=== PATIENT | male | born 1955 | race Caucasian/White ===

== ENCOUNTER 2023-01-05 09:56 | Day surgery (SDC) | payer BC, SELFPAY ==
[2023-01-03 11:53] VITALS: BMI 35.2
[2023-01-05] VITALS (11 sets, daily range): BP systolic 102–159; BP diastolic 54–86; PULSE 61–78; RESP 14–16; TEMP 36.2–36.4; O2SAT 93–98; BMI 35.2
--- NOTE | 2023-01-05 06:00 | DI.RAD.S_ITS ---
PROCEDURE: XR KNEE LT 1TO2V INDICATIONS: TKA TECHNIQUE: 2 view(s) of the knee acquired. COMPARISON: None. FINDINGS: Bones: Patient is status post knee joint arthroplasty. Hardware components are in expected positions. Visualized bony structures are intact. Soft tissues: Overlying postoperative changes are noted. IMPRESSION: Expected postsurgical changes of left total knee arthroplasty. No gross hardware complication identified. Dictated by: Jose Hoover M.D. on 01/05/2023 at 14:59 Approved by: Jose Hoover M.D. on 01/05/2023 at 14:59
[2023-01-05] MEDS: LACTATED RINGERS 1,000 ML 42 ML IV (10:33)
[2023-01-05] MEDS: ACETAMINOPHEN 325 MG TABLET 975 MG PO (10:37)
[2023-01-05] MEDS: MELOXICAM 7.5 MG TABLET PO (10:39)
--- NOTE | 2023-01-05 11:17 | PM.PREOP ---
Pre-operative Note Interval Note History & Physical reviewed/Exam performed by Physician: Yes Changes to H&P: No
[2023-01-05] MEDS: CEFAZOLIN 2 GM/100 ML PREMIX 100 ML IV ×2 (12:00→19:51)
[2023-01-05] MEDS: TRANEXAMIC ACID 1,000 MG VIAL 1000 MG INJ ×2 (12:05→13:50)
--- NOTE | 2023-01-05 12:24 | SUR.OPER ---
Supine on padded OR bed. Pillow under head, arms secured on padded armboards <90 degree abduction. Safety belt across torso. Non-operative leg secured with tape over blanket over lower leg. Operative leg secured in DeMayo/Arvind/Nathe positioner. Foam padded brace at thigh of operative leg.
[2023-01-05] MEDS: ROPIVACAINE/EPI/CLONIDINE/KET 50 ML SYRINGE INJ (12:36)
--- NOTE | 2023-01-05 14:50 | PM.OP.1 ---
Operative Date/Time/Diagnoses Date of procedure: 01/05/23 Time of procedure: 11:45 Pre-op diagnosis: Left knee arthritis Post-op diagnosis: same Procedure & Clinicians Procedure: Left total knee arthroplasty Same procedure as scheduled: Yes Surgeon: Paul Hays Counting Machine Operator: Thomas Lunsford Anesthesia Type: Spinal, Peripheral nerve block and Local Operative Notes Prosthetic devices, grafts, tissues, transplants, or devices: Davis and Nephew legion size 7 cruciate retaining femur, 6 tibial base plate, 13 mm ultra congruent polyethylene Estimated Blood Loss (mL): 250 Tourniquet time (min): 88 Procedure in detail: This 67-year-old male presenting to clinic with debilitating left knee pain. 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 He has significant pain which was refractory to all conservative measures. He wished to proceed with surgery. The risks and benefits were explained to him at length and he elected to proceed. He was met in the preoperative holding area the day of surgery and all questions were answered. Risks and benefits were again discussed. The operative site was marked and informed consent was signed. He was brought back to the operating room and spinal anesthesia was administered. He was placed supine on the flat top table and all bony prominences were padded. His arms were draped free and he was prepped and draped in the usual sterile fashion. A time-out procedure was performed verifying the correct patient operative site and medical conditions. TXA and cefazolin were administered prior to the start of the procedure. SUSANNE Elliott assisted during the procedure and was necessary for room set up, soft tissue retraction, wound closure, and the procedure would not have been possible without his help. The procedure began by inflating the tourniquet. I then made an incision extending down towards the tibial tubercle and centered over the patella. The soft tissues overlying the joint capsule were dissected and a medial parapatellar arthrotomy was utilized to gain access to the joint. A extended medial release was performed given his preoperative varus deformity of 10?. Soft tissues were released off of the lateral tibia and the anterior femur as well. I everted the patella and performed a limited lateral release just off the lateral border of the patella to aid with tracking and dissected off soft tissues around the patella as well as several small osteophytes. I then performed a lateral facetectomy. Moving to the distal femur retractors were placed around the femur and an intramedullary tim was inserted extending up the femoral canal. A 5 degree distal femoral resection was made and the cruciates were removed from the femoral notch. The knee was then maximally externally rotated and hyperflexed. Retractors were placed on the tibia and the remainder of the PCL remnant was taken down. With the tibia subluxed forward a intramedullary tim was inserted down the tibia and used as a reference for tibial resection. I cut 4 mm off of the medial side which was the more worn side. With retractors in place to protect the soft tissues during the tibial cut a flat cut was made and removed. I then moved to the extension gap. Placing the tensioner with the knee in full extension I found that it was actually slightly tighter laterally, potentially as a result of the medial release I would performed initially. I was not going to perform a lateral release on a varus knee so I accepted this, presuming that it would balance out over the remainder of the case. I then moved to the posterior femur. Hyperflexing the knee and placing retractors around the femur I initially placed a measured resection block and drilled holes for a 3 degree external rotation cut for comparison purposes. I then used a soft tissue tensioner to tension the knee in flexion with the tibia at 90? relative to the face of the distal femur. I tensioned this to the same amount of force as had been used an extension and shifted it by 1 mm to have a 13 mm gap as this is what I had measured with a forced rating of 40 while the knee was in extension. This was drilled and those pins remained in place when the tensioner was removed. I found that this was in an identical position as the measured resection holes which had been placed earlier, indicating that 3? of external rotation provided a balanced flexion gap. A size 8 4 in 1 block was placed in those holes and a spacer block was placed underneath that so that the 4 in 1 block rested on the tibia. I then internally and externally rotated through the hip to ensure that there was no excessive lift-off. I found this to be symmetric. The size 8 block was pinned in place and an anterior cut was made. This was rather thin so I downsized to a size 7, checked it with an Ap wing, and pinned it in place. I then completed the 4 in 1 cuts with that size 7. The block was removed and posterior osteophytes as well as the medial and lateral meniscus were removed as well. Approximately 50 mL of a cocktail containing ropivacaine epinephrine clonidine and Toradol was administered into the MCL, posterior capsule, lateral medial periosteum, patellar tendon, and VMO. Trial components were placed and I trialed the knee with 9 mm 11 mm and 13 mm polyethylene inserts. I found that the 13 mm insert provided the most stability in flexion while still allowing full extension. I therefore planned to utilize this at the cementation phase. All of the soft tissues were irrigated and the tibia and femur were irrigated. Cement was inserted down the tibial canal and the tibial component was impacted into place. The femoral component was likewise impacted into place with cement. The cement was allowed to cure with the knee in full extension while placing axial force on the heel. While the cement was drying a dilute mixture of Betadine and peroxide was used to bathe all of the soft tissues in the knee. A low adductor canal block was performed by using a laterally angled needle to inject the final 10 mL of the ropivacaine epinephrine clonidine and Toradol solution into the adductor canal to block the infrapatellar branch of the saphenous nerve. Prior to injection I withdrew on the syringe to ensure that I had not entered into the vasculature in that region. Once the cement had dried I tested the knee and noted that it had full extension, good stability medial relative to lateral, very good passive knee flexion, and minimal lift-off with internal and external rotation of the hip at 90? of flexion. Being satisfied with this construct I removed the trial polyethylene, inspected the knee for residual cement and removed any that I found, and impacted into place the 13 mm ultra congruent polyethylene. The tourniquet was taken down and hemostasis was achieved. The wound was closed using a combination of Vicryl, Quill, Stratafix. Dermabond Aquacel and an Escobar wrap were applied. The patient was awoken from anesthesia transferred off of the operating table and brought to the PACU where he awoke without any discernible complications. He was noted to be able to flex and extend his hallux and ankle and to have a palpable DP pulse. Post-operative Plan for aftercare: Weightbearing as tolerated Aspirin DVT prophylaxis Plan for discharge home either tonight or tomorrow morning Follow up 2 weeks outpatient for wound check
[2023-01-05] MEDS: MORPHINE 2 MG/ML INJ IV (15:29)
[2023-01-05] MEDS: LACTATED RINGERS 1,000 ML 100 ML IV (15:30)
[2023-01-05] MEDS: ACETAMINOPHEN 325 MG TABLET 650 MG PO ×2 (15:31→20:50)
--- NOTE | 2023-01-05 15:34 | DI.RAD.S_ITS ---
PROCEDURE: XR CHEST 1V INDICATIONS: chest pain TECHNIQUE: One view of the chest was acquired. COMPARISON: None. FINDINGS: Surgical changes and devices: None. Lungs and pleura: Lungs are clear. No pleural effusions or pneumothorax. Mediastinum: Mediastinal contours appear normal. Heart size is normal. Bones and chest wall: No suspicious bony lesions. Overlying soft tissues appear unremarkable. IMPRESSION: Portable chest within normal limits for age. Dictated by: Bakari Bonilla M.D. on 01/05/2023 at 16:10 Approved by: Bakari Bonilla M.D. on 01/05/2023 at 16:10
[2023-01-05 16:22] LABS: Troponin I < 0.012 ng/mL (0.01-0.034)
[2023-01-05] MEDS: OXYCODONE IR 10 MG TABLET PO ×2 (16:34→19:49)
--- NOTE | 2023-01-05 16:39 | P.CONS_ITS ---
History of Present Illness Consult details Date Patient Seen: 01/05/23 Time Patient Seen: 16:41 Chief complaint: Left TKA *OPB* Narrative: Chest pressure. The patient is a 67-year-old male status post a left total knee replacement today. This procedure went without complication. When he was being transported to the [facility] after the surgery he noted left sided chest pressure. He stated it felt like his ventricle was hurting. The pain was not pleuritic, nor did it radiates to the neck or arm. He did not have associated nausea, vomiting or diaphoresis. There is no dyspnea. Does not have a pleuritic component to the pain. He has no cardiac history. There is no family history of cardiac events. He does have a remote history of smoking. Past history includes hypertension as well as a left arm DVT which he was treated for with blood thinners for 6 months. This has completed a not takes aspirin daily. He did take a baby aspirin today. He denies any history of exertional chest pain or dyspnea. No leg swelling or pain. His vital signs are stable upon evaluation and he has a static, on alarming ECG which is compared to previous ECG. Meds Home Medications and Allergies Home Medications Medication Instructions Recorded Confirmed Type amlodipine 10 mg tablet 10 mg PO DAILY 01/03/23 01/05/23 History aspirin 81 mg tablet,delayed 81 mg PO DAILY 01/03/23 01/05/23 History release Allergies Allergy/AdvReac Type Severity Reaction Status Date / Time coconut Allergy Severe Anaphylaxis Verified 01/05/23 10:30 Influenza Virus Vaccines Allergy Severe Anaphylaxis Verified 01/05/23 10:30 Review of Systems Review of Systems Narrative: All else reviewed and otherwise negative. He does not have dyspepsia but has been taking a lot of ibuprofen. Exam Vital Signs (past 8 hours): - 01/05/23 10:40 01/05/23 10:44 01/05/23 10:56 Temperature 97.6 F Pulse Rate 75 Respiratory Rate 16 Blood Pressure 159/86 H Pulse Oximetry Oxygen Delivery Method Room Air Room Air Room Air Oxygen Flow Rate 01/05/23 14:35 01/05/23 14:40 01/05/23 14:46 Temperature 97.4 F L Pulse Rate 78 72 74 Respiratory Rate 16 16 16 Blood Pressure 129/72 115/74 107/75 Pulse Oximetry 98 94 94 Oxygen Delivery Method Nasal Cannula Room Air Nasal Cannula Oxygen Flow Rate 4 01/05/23 14:55 01/05/23 15:15 01/05/23 15:40 Temperature 97.2 F L 97.4 F L 97.4 F L Pulse Rate 75 70 64 Respiratory Rate 16 14 14 Blood Pressure 124/78 119/71 116/67 Pulse Oximetry 98 96 96 Oxygen Delivery Method Room Air Oxygen Flow Rate 2 2 01/05/23 16:20 Temperature 97.6 F Pulse Rate 61 Respiratory Rate 16 Blood Pressure 102/54 L Pulse Oximetry 95 Oxygen Delivery Method Oxygen Flow Rate 2 Oxygen Delivery Method Room Air Oxygen Flow Rate 2 Narrative Exam Narrative: No acute distress, flat affect. Normocephalic head, EOMI, anicteric sclerae. Neck supple, normal trachea. Lungs are clear, normal effort. Heart is regular, no murmur gallop or rub. Abdomen is soft, nontender and nondistended. No leg or arm edema. Good extremity pulses in all 4 extremities. No skin rash or lesion. The left knee is wrapped. Joints are otherwise unremarkable, there is no adenopathy. Objective ECG Impression: NSR, No ST segment changes. Imaging Chest x-ray: My impression: Clear, No PTx or infiltrate. Radiologist's impression: IMPRESSION: Portable chest within normal limits for age. Labs Labs: Laboratory Results - last 24 hr 01/05/23 15:53 Troponin I < 0.012 [facility] Medical History (Updated 01/03/23 @ 13:23 by Yenny Duvall RN) History of COVID-19 (2019) Anesthesia complication Osteoarthritis History of DVT (deep vein thrombosis) (2012) Asthma Multiple fractures (~1985) HTN (hypertension) Surgical History (Updated 01/03/23 @ 13:15 by Yenny Duvall RN) History of surgery (1984) Hx of tonsillectomy H/O vasectomy Hx of arthroscopy of left knee Social History household members: none Tobacco & Substance Use Smoking Status: Former smoker alcohol intake: current Assessment & Plan Assessment & Plan narrative: 1. Chest pain postoperative with no cardiac history, New and active. 2. S/P left TKA, without complications. 3. Hypertension, POA and stable. 4. Remote Left arm DVT, not POA or active. 5. Recent heavy Ibuprofen use, POA. Plan: treat with Morphine, ASA, and trend serial troponins. Consider ECHO based on clinical course. Has never had a risk stratification test. Time Spent With Patient Time with patient: 30 to 49 minutes with 50% spent counseling/coordinating care
[2023-01-05] MEDS: IBUPROFEN 600 MG TABLET PO (19:50)
[2023-01-05] MEDS: ASPIRIN EC 81 MG TABLET PO (20:50)
[2023-01-05] MEDS: DOCUSATE 100 MG CAPSULE PO (20:50)
[2023-01-05 22:25] LABS: Troponin I < 0.012 ng/mL (0.01-0.034)
[2023-01-06] MEDS: OXYCODONE IR 10 MG TABLET PO ×4 (00:59→11:16)
[2023-01-06] MEDS: IBUPROFEN 600 MG TABLET PO ×2 (02:26→08:11)
[2023-01-06] MEDS: ACETAMINOPHEN 325 MG TABLET 650 MG PO ×2 (02:27→10:43)
[2023-01-06] MEDS: CEFAZOLIN 2 GM/100 ML PREMIX 100 ML IV (04:58)
[2023-01-06 06:32] LABS: Hematocrit 38.7 % (41-53); Hemoglobin 13.4 g/dL (13.5-17.5)
[2023-01-06 06:54] VITALS: BP 121/68; PULSE 63; RESP 16; TEMP 36.8; O2SAT 98
--- NOTE | 2023-01-06 07:58 | PM.PN.1 ---
Subjective Subjective Date Patient Seen: 01/06/23 Interval history: He is seen in his room today to follow-up his chest pain episode from yesterday. His EKG was normal and his troponin was normal. He describes that postoperatively he had a sensation of squeezing in the left chest that lasted about 45 minutes and has not recurred. After evaluation by orthopedics and hospitalist service today the patient was discharged by Orthopedics. He had a knee replacement done during this hospital stay. Exam Vital Signs (past 8 hours): - 01/06/23 06:54 Temperature 98.2 F Pulse Rate 63 Respiratory Rate 16 Blood Pressure 121/68 Pulse Oximetry 98 Oxygen Flow Rate 0 Oxygen Delivery Method Nasal Cannula Oxygen Flow Rate 0 Narrative Exam Narrative: Alert and oriented x3. Sitting up in the reclining chair, in no apparent distress Heart is regular rate and rhythm without murmur Lungs are clear to auscultation bilaterally Extremities have no ankle edema There is no chest tenderness The left knee dressing is intact The left medial ankle has a rash and several skin scratches present. Objective Labs 01/06/23 06:08 Labs: Laboratory Results - last 24 hr 01/05/23 01/05/23 01/06/23 15:53 21:53 06:08 Hgb 13.4 L Hct 38.7 L Troponin I < 0.012 < 0.012 [facility] Medical History (Updated 01/03/23 @ 13:23 by Yenny Duvall RN) History of COVID-19 (2019) Anesthesia complication Osteoarthritis History of DVT (deep vein thrombosis) (2012) Asthma Multiple fractures (~1985) HTN (hypertension) Surgical History (Updated 01/03/23 @ 13:15 by Yenny Duvall RN) History of surgery (1984) Hx of tonsillectomy H/O vasectomy Hx of arthroscopy of left knee Social History household members: none Smoking Status: Former smoker alcohol intake: current Assessment & Plan Assessment & Plan narrative: 1. Chest pain postoperative with no cardiac history -resolved with no recurrence and normal EKG/troponin 2. S/P left TKA, without complications. -discharged home for orthopedics on 01/06 3. Hypertension, POA and stable. -continue amlodipine and aspirin 4. Remote Left arm DVT, not POA or active. 5. Recent heavy Ibuprofen use, POA. Recommend outpatient cardiac evaluation with primary care physician which he states is the clinic at the [facility] in [facility].. Quality VTE Deep Vein Thrombosis/Pulmonary Embolism Present on Admission: No
--- NOTE | 2023-01-06 09:58 | PM.DS.1 ---
History of Present Illness History of Present Illness Date Patient Seen: 01/06/23 Time Patient Seen: 09:58 Chief complaint: Left TKA *OPB* Narrative: Operative Date/Time/Diagnoses Date of procedure: 01/05/23 Time of procedure: 11:45 Pre-op diagnosis: Left knee arthritis Post-op diagnosis: same Procedure & Clinicians Procedure: Left total knee arthroplasty Same procedure as scheduled: Yes Surgeon: Paul Hays Forest Resource Specialist: Thomas Lunsford Anesthesia Type: Spinal, Peripheral nerve block and Local Operative Notes Prosthetic devices, grafts, tissues, transplants, or devices: Davis and Nephew legion size 7 cruciate retaining femur, 6 tibial base plate, 13 mm ultra congruent polyethylene Estimated Blood Loss (mL): 250 Tourniquet time (min): 88 Discharge Providers Provider Discharge Date: 01/06/23 Consults: 01/05/23 06:00 Consult to Anesthesiology Routine Comment: Consulting Provider: Anesthesiologist Reason for consultation: Regional block for post operative pain control 01/05/23 15:04 Consult to Discharge Planning Routine Comment: Consult to Occupational Therapy Evaluate & Treat Comment: Physician Instructions: Evaluate and treat Consult to Physical Therapy Evaluate & Treat Comment: Physician Instructions: postop TKA protocol Discharge provider: Smitha Piña PA-C Summary Hospital Course Discharge Diagnosis: Left knee osteoarthritis, s/p left total knee arthroplasty Hospital Course: Mr [facility] hospital course was remarkable for left-sided chest discomfort on transfer to the floor following surgery; EKG and troponins were normal. On the morning of POD# 1 he was feeling well and denied chest discomfort or shortness of breath. He was overall feeling well and wanted to go home. He was eating and voiding without difficulty and his pain was well-controlled with oral medication. He had not yet been evaluated by PT but he had been OOB. Exam Vital Signs (past 8 hours): - 01/06/23 06:54 Temperature 98.2 F Pulse Rate 63 Respiratory Rate 16 Blood Pressure 121/68 Pulse Oximetry 98 Oxygen Flow Rate 0 Oxygen Delivery Method Nasal Cannula Oxygen Flow Rate 0 Narrative Exam Narrative: 5/5 strength in hip flexors, quadriceps, hamstrings, DF, PF, EHL on left. Sensation to light touch intact throughout LLE. Calf soft, compressible, nontender. REYNA wrap over Aquacel CDI. Objective Labs 01/06/23 06:08 Labs: Laboratory Results - last 24 hr 01/05/23 01/05/23 01/06/23 15:53 21:53 06:08 Hgb 13.4 L Hct 38.7 L Troponin I < 0.012 < 0.012 [facility] Medical History (Updated 01/03/23 @ 13:23 by Yenny Duvall, RN) History of COVID-19 (2019) Anesthesia complication Osteoarthritis History of DVT (deep vein thrombosis) (2012) Asthma Multiple fractures (~1985) HTN (hypertension) Surgical History (Updated 01/03/23 @ 13:15 by Yenny Duvall RN) History of surgery (1984) Hx of tonsillectomy H/O vasectomy Hx of arthroscopy of left knee Social History household members: none Smoking Status: Former smoker alcohol intake: current Discharge Assessment & Plan Assessment and Plan Assessment: Left knee osteoarthritis, s/p left total knee arthroplasty Plan of Treatment: Discussed w/ Dr Holm; ok to discharge after PT if PT agrees. ASA BID for VTE prophylaxis, outpt PT, f/u in office in 2 weeks as scheduled. Discharge Plan Discharge Plan Patient Disposition: Home Discharge orders & Medications Discharge Orders: Discharge (Order); Ordered 01/06/23 Ordered By: Smitha Piña Prescriptions: Continued aspirin [Aspir-81] 81 mg Tablet,Delayed Release (Dr/Ec) 81 mg PO DAILY amlodipine 10 mg Tablet 10 mg PO DAILY Follow up/Referrals: Paul Hays MD [Physician] - As previously scheduled (Follow up with Addison Guevara PA-C, on 01/16/2023 @ 11:30 am at [facility] office in [place].) Diet/Activity/Treatments Diet: Diet as Tolerated Activity: Walk frequently! Cold/Heat Therapy: Ice to knee as needed for pain. Other treatments: Increase aspirin to twice a day for 6 weeks after surgery. Skin/Wound/Dressing Care Report to your healthcare provider any signs of infection, such as:: chills, fever, night sweats, unusual drainage and unusual redness Dressing: May remove REYNA wrap and shower on 01/08/2023. Leave dressing in place until follow up in office. No bathing or otherwise soaking incision. Call the office if the dressing becomes saturated inside. Visit Report/Discharge Packet Instructions: DI for Knee Replacement, DI for Prescription Opioid Use Stand Alone Forms: Patient Portal/API, Surgery Discharge Discharge Data Attending Provider: Paul Hays Quality VTE Deep Vein Thrombosis/Pulmonary Embolism Present on Admission: No
--- NOTE | 2023-01-06 10:00 | PT.IIE ---
Current Diagnoses Unilateral primary osteoarthritis, left knee (01/05/23) Surgery Performed Operation Date: 01/05/23 11:30 Actual Procedures p Total Knee Arthroplasty(Left) - Paul Hays MD Surgical History (Last Updated 01/03/23 @ 13:15 by Yenny Duvall RN) H/O vasectomy History of surgery (1984) Hx of arthroscopy of left knee Hx of tonsillectomy Medical History (Last Updated 01/03/23 @ 13:23 by Yenny Duvall RN) Anesthesia complication Asthma History of COVID-19 (2019) History of DVT (deep vein thrombosis) (2012) HTN (hypertension) Multiple fractures (~1985) Osteoarthritis Physical Therapy Inpatient Evaluation/Re-Eval M1 PT/OT-IP Prior Functional Status Start: 01/06/23 12:42 Freq: NEEDED Status: Active Protocol: Document 01/06/23 10:00 AB (Rec: 01/06/23 12:55 AB [id number]) Medical Review Prior Functional Status Medical History Reviewed Yes Communication able to make needs known Mobility and Gait pt stated that he was independent with all mobilities and ambulation without AD Social History Household Members none Living Arrangements Mobile home Number of Floors (Floors) One Floor Number of Stairs To Enter/Railing? 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 M2 PT-IP Current Condition Start: 01/06/23 12:42 Freq: NEEDED Status: Active Protocol: Document 01/06/23 10:00 AB (Rec: 01/06/23 12:55 AB [email or web address]) Physical Therapy Current Condition Current Condition Evaluation Date 01/06/23 Treatment Diagnosis s/p L TKA; difficulty in walking Onset Date 01/05/23 M3 PT-IP Subjective Start: 01/06/23 12:42 Freq: NEEDED Status: Active Protocol: Document 01/06/23 10:00 AB (Rec: 01/06/23 12:55 [id number]) Subjective Physical Therapy Visit Type Type Initial Evaluation Visit Start Time 10:00 Visit Stop Time 10:45 Total Visit Minutes 45 Number of SENIOR CORE JAVA DEVELOPER Visits 0 Physical Therapy Visit Comments Patient Comments agreeable to do PT Therapy Pain Assessment Pain When Pain Assessed At Rest Pain Present Pain Present Pain Reported Location Left Knee Intensity 6 Scale Used Numeric (0 - 10) Pain Management Techniques Apply Cold,Distraction, Elevation,Modification of Treatment,Re-positioning, Timing of Activity with Medications M4 PT-IP Mobility and Gait Start: 01/06/23 12:42 Freq: NEEDED Status: Active Protocol: Document 01/06/23 10:00 AB (Rec: 01/06/23 12:55 [email or web address]) PT-Bed Mobility Assessment Supine to Sit Supine to Sit Standby Assistance Sit to Supine Sit to Supine Standby Assistance,Contact Guard Assistance PT-Transfer Assessment Sit to and From Stand Sit to and from Stand Standby Assistance,Contact Guard Assistance Equipment Transfer Assistive Device Gait Belt,Front Wheeled Walker Orthotic/Prosthetic Devices or Brace: No Transfers Transfer Destination Bed,Chair Transfer Technique ambulated Transfer Ability Level of Assist Standby Assistance,Contact Guard Assistance,1 Person Assistance,Use of Upper Extremities Comments Mobility Comments pt sitting on the chair and agreeable to do PT. post-op folder provided and reviewed contents and HEP. pt completed sit to stand from the chair SBA to CGA. pt tends not to use LLE to push off the chair. pt completed step transfer using FWW to EOB SBA to CGA and completed sit< >supine SBA. completed sit to stand SBA from EOB and ambulated ~ 100 ft using FWW SBA to occasional CGA. educated on stair climbing. pt completed up/down steps holding on to R rail with B hands CGA to min A and cues. c/o increase Lknee pain and wants to go back to bed. pt assisted back to his room. ambulated from w/c to bed using FWW SBA ~ 12 ft. completed sit to supine SBA. positioned in bed. call light and table placed within reach . offered caregiver training but stated that his friend is disabled and will not be able to physically assist him. pt agreed to see PT again at 100pm today. Gait Assessment Gait Gait Assistance Required: Standby Assistance,Contact Guard Assist Distance (Feet) 100 Assistive Devices Assistive Device Gait Belt,Front Wheeled Walker Orthotic/Prosthetic Devices or Brace: No Gait Deviations General Gait Pattern Antalgic,Decreased Stride Length,Decreased Feet Clearance Factors Limiting Gait Function Factors Limiting Gait Function Decreased Activity Tolerance, Decreased Strength,Difficulty Following Directions,Limited Range of Motion,Pain,Poor Balance,Poor Safety Awareness Stair Climbing Assessment Evaluation Level of Assist On Stairs Contact Guard Assistance, Minimal Assistance Devices Stair Climbing Assistive Devices Right Railing Technique/Endurance Stair Climbing Direction Ascend and Descend Stair Climbing Technique Step to Step Number of Steps Climbed 3 Query Text: Stair Climbing Set # Repetitions (reps) 1 PT-Balance Assessment Sitting Balance and Reactions Static Sitting Balance Ability Normal Dynamic Sitting Balance Ability Good Standing Balance and Reactions Static Standing Balance Ability Fair Dynamic Standing Balance Ability Fair Device Used FWW M5 PT-IP Objective Assessments Start: 01/06/23 12:42 Freq: NEEDED Status: Active Protocol: Document 01/06/23 10:00 AB (Rec: 01/06/23 12:55 [email or web address]) Orientation Orientation/Cognition Level of Alertness Alert Orientation Name,Place,Situation Language Function Ability No Deficits Noted Safety Awareness Decreased Safety Awareness Memory Description No Deficits Noted Gross Range of Motion Lower Extremity ROM Impairments L knee flexion: ~ 70 deg Strength Lower Extremity Strength Assessment Left Impaired Hip 4-/5 Knee 3+/5 Coordination Assessment Gross Coordination Gross Coordination WNL Sensation Assessment Sensation Gross Sensation WNL Muscle Tone Muscle Tone WNL Yes M6 PT-IP Treatment Start: 01/06/23 12:42 Freq: NEEDED Status: Active Protocol: Document 01/06/23 10:00 AB (Rec: 01/06/23 12:55 AB [email or web address]) Physical Therapy Treatment Education Education Provided Precautions,Weight Bearing Status,Post-Op Packet,Safety M7 PT-IP Assessment and Plan Start: 01/06/23 12:42 Freq: NEEDED Status: Active Protocol: Document 01/06/23 10:00 AB (Rec: 01/06/23 12:55 AB [email or web address]) PT Summary Assessment and Plan Potential Rehabilitation Potential Fair Status of Condition at Evaluation Evolving Summary Impairments Pain,ROM,Strength,Balance, Coordination,Sensation,Tone, Cognition,Bed Mobility, Transfers,Gait,Activity Tolerance Assessment Summary pt is a 67 y/o M s/p L TKA POD 1. pt requiring SBA with bed mobility, SBA for transfers and ambulation using FWW but requiring CGA to min with stair climbing. pt plans to go home and his friend will be able to assist him for 2 days but limited with physical assistance the friend will be able to provide. will continue to assess progress. Goals Bed Mobility Goal Independent Transfer Goal Independent,Front Wheeled Walker Gait Goal Independent,Front Wheel Walker Gait Distance 300 Other Goals up/down 4 steps R rail ascending SBA Days to Meet Goals 5 Frequency of Treatment Frequency Of Treatment Twice a Day Treatment Plan Physical Therapy Treatment Plan Bed Mobility Training,Transfer Training,Gait Training, Therapeutic Exercise,Balance Retraining,Post Op Education, Discharge Planning,Hot or Cold Pack,Neuromuscular Re-ed, Coordination Retraining,Manual Therapy Weight Bearing Status Weight Bearing Status Weight Bear as Tolerated Allowed Weight Bearing Amount (enter % LLE WBAT or #) (%) Recommendations To Nursing Amount of Assist Needed 1 Person Assist Discharge Recommendations PT Discharge Recommendations Home with Assistance, Outpatient PT Transportation Needs at Discharge Private Vehicle
[2023-01-06] MEDS: DOCUSATE 100 MG CAPSULE PO (10:42)
[2023-01-06] MEDS: AMLODIPINE 5 MG TABLET 10 MG PO (10:42)
[2023-01-06] MEDS: ASPIRIN EC 81 MG TABLET PO (10:42)
[2023-01-06 11:52] VITALS: BP 135/69; PULSE 73; RESP 19; TEMP 36.6; O2SAT 95
--- NOTE | 2023-01-06 11:58 | CM.DPC ---
DCP Cont. Reviewed EMR and team rounds for status updates. Pt is cleared for d/c home today. Family will transport in private vehicle. F/u OP w/Ortho. No further d/c needs indicated at this time.
--- NOTE | 2023-01-06 12:04 | CM.DANOTE ---
Initial DCP Assessment Note Reviewed EMR for pt's status and anticipated d/c needs. Met with pt at bedside to introduce self and role. Pt found to be upright in the recliner eating breakfast, alert and oriented but tired. This is post-op day 1. Payor: [employer] Attending: Paul Augusto Pt is a 67 year-old M admitted for a total L-knee arthroplasty. Pt reportedly has been having worsening and progressive L-knee plan for the last 6-years, despite having tried multiple types of exercise and activity modification. Surgery was completed yesterday, pt was found to be upright in the recliner, appearing comfortable yet somnolent. He states he has mobility DME at home, and a SO to assist with continued care and support needs. OP PT is recommended, pt will f/u with Ortho in 2-weeks to discuss plan for cont. PT. Pt will most likely d/c later today. Family will transport via private vehicle. DCP will cont. to follow. Discharge Planning/Care Management CM Discharge Assessment Start: 01/06/23 12:00 Freq: Status: Active Protocol: Document 01/06/23 12:01 DPL (Rec: 01/06/23 12:04 DPL [id number]) Discharge Planning Assessment Assigned Custom Furrier MARK Delacruz Advance Directives? No History Provided By Patient,Medical Record Has Patient been admitted in last 30 No days? Prior Living Arrangements Mobile home Household Members none Comment Pt does have a SO to assist following d/c home. Type of transporation used prior to Drives own vehicle admit Independent with ADL's Yes Is patient alert and oriented? Yes Caregiver for Another No Comment Pt has tried various exercies and activity modification prior to surgery with no lasting benefit. DME Already Rented / Owned Elevated Toilet Seat,FWW / Walker,Cane,Crutches Patient/Family Preference OP PT Therapy Comment Pt to f/u with Ortho in 2- weeks. OP therapies will be ordered at that time. Barriers to Discharge No Discharge Plan Home Community Services Physical Therapy,Occupational Therapy Transportation Arrangement Significant other. Referrals Initiated None needed Whiteboard Updated in Patient Room with Yes name and ext. # of Custom Furrier Review Status In Process Please Provide Date Initial DC 01/06/23 Assessment Was Performed Pre-Anesthesia Assessment Start: 01/03/23 11:53 Freq: Status: Active Protocol: Document 01/03/23 11:53 CAB (Rec: 01/03/23 13:31 CAB [id number]) Pre-Anesthesia Assessment Preferred Name Jeffrey Patient Information Reviewed Via Phone Assessment Assessment Completed With Patient Diagnostic Results BMP/CMP,CBC,EKG Comment Outside labs/EKG scanned Primary Care Provider ABDON Bhandari Comment PCP clearance 12/20/22 scanned to record Medical Clearance Received Yes Seen Specialist in Last 12 Months Yes Specialist Seen Orthopedist Primary Language Amharic Sap Basis Required No Height 182.88 cm Weight 117.934 kg Body Mass Index (BMI) 35.2 Hearing Ability Normal Visual Assist Glasses Dentition Type Teeth, Natural Present,Teeth, Missing Barriers to Learning None Hx Anesthesia Reactions Yes: PONV x 3 days Hx Family Anesthesia Reaction No Hx Malignant Hyperthermia No Hx Blood Transfusions No Anesthesia Review Requested No Fish Farm Manager No alcohol intake current alcohol intake frequency a few times a week Smoking Status Former smoker how long ago did patient quit smoking Quit 13 years ago Substance Use Type does not use Pain Present Pain Reported Musculoskeletal Symptoms Abnormal Gait,Difficulty Walking,Joint Pain History of Falling (Recent or History of No ) Patient is completely paralyzed or No completely immobile Mental Status Oriented to own ability Is patient on oxygen? No Does patient have CORDOVA/SOB No Hx Sleep Apnea No Currently Taking a Beta Felicia No Can You Climb a Flight of Stairs Without Yes SOB Hx Chest Pain No Hx SOB No Hx Syncope or Dizziness No Anti-Coagulant Therapy Yes: ASA - pt told to continue per PCP Has a Precision Dyer No Cardiac Testing No Hx Pacemaker/ICD No Pacemaker Rep Required? No Diet Type At Home Regular Dysphagia No Gastrointestinal Symptoms None Chronic UTI No Urinary Catheter Present No Hx Urinary Self Catheterization No Diabetes No HgbA1C 5.7 Date 12/07/22 Hx Drug Resistant Organism No Presence of External or Internal Medical No Devices Have you had any close contact with No someone diagnosed with COVID-19? Received a COVID vaccine? No Marital Status Single Lives With none Current Living Arrangements Mobile home Number of Floors (Floors) One Floor Support System Caregiver,Significant Other Does the Patient Have Assistance After Yes: S.O. & caregiver will Surgery assist w/care at home on DC Patient Discharge Plan Description Return Home Comment Pt advised overnight length of stay per surgeon Feels Safe in Current Environment Yes Been Physically Hurt or Threatened By a No Person in Current Environment Do you have thoughts of harming yourself None or others? Are you currently considering suicide? No Do you have a plan to hurt yourself or No Plan others? Do You Have Any Spiritual Beliefs That No May Affect Your HC Choices? Do You Have Any Cultural Practices That No May Affect Your HC Choices? Comment Episcopalian Who Can We Speak to About Patient's Care Family, friends Identifying Code for Release of Patient Declines to issue Information Health Care Proxy/Next of Kin Lawrence Stanton (S.O.) Health Care Proxy Emergency Contact Name Lawrence Stanton (S.O.) Emergency Contact Advance Directives? No Power of Fan Blade Truer No PAC Instructions Durable medical equipment, Medications to take/avoid, Nasal antibiotic,No ETOH/ petroleum product on skin DOS, NPO,Post-op transportation,Pre -surgical wash,Sensory aids, Sturdy shoes/comfortable clothes,Do not bring valuables and remove jewelry
--- NOTE | 2023-01-06 12:56 | PT.IPTN ---
Current Diagnoses Unilateral primary osteoarthritis, left knee (01/05/23) Surgery Performed Operation Date: 01/05/23 11:30 Actual Procedures p Total Knee Arthroplasty(Left) - Paul Hays MD Physical Therapy Treatment Note M2 PT-IP Current Condition Start: 01/06/23 12:42 Freq: NEEDED Status: Active Protocol: Document 01/06/23 10:00 AB (Rec: 01/06/23 12:55 AB [id number]) Physical Therapy Current Condition Current Condition Evaluation Date 01/06/23 Treatment Diagnosis s/p L TKA; difficulty in walking Onset Date 01/05/23 M3 PT-IP Subjective Start: 01/06/23 12:42 Freq: NEEDED Status: Active Protocol: Document 01/06/23 12:56 AB (Rec: 01/06/23 13:24 AB [id number]) Subjective Physical Therapy Visit Type Type Treatment Note Visit Start Time 12:56 Visit Stop Time 13:14 Total Visit Minutes 18 Number of ORTHOPEDIC NURSE PRACTITIONER Visits 0 Physical Therapy Visit Comments Patient Comments agreeable to do PT Therapy Pain Assessment Pain When Pain Assessed At Rest Pain Present Pain Present Pain Reported Location Left Knee Intensity 6 Scale Used Numeric (0 - 10) Pain Management Techniques Distraction,Modification of Treatment,Timing of Activity with Medications M4 PT-IP Mobility and Gait Start: 01/06/23 12:42 Freq: NEEDED Status: Active Protocol: Document 01/06/23 12:56 AB (Rec: 01/06/23 13:24 AB [id number]) PT-Bed Mobility Assessment Sit to Supine Sit to Supine Standby Assistance PT-Transfer Assessment Sit to and From Stand Sit to and from Stand Standby Assistance,1 Person Assistance,Use of Upper Extremities Equipment Transfer Assistive Device Gait Belt,Front Wheeled Walker Orthotic/Prosthetic Devices or Brace: No Transfers Transfer Destination Toilet Transfer Technique ambulated Transfer Ability Level of Assist Standby Assistance,1 Person Assistance,Use of Upper Extremities Comments Mobility Comments pt in bed and agreed to do PT. completed supine to sit SBA and sit to stand SBA and ambulated towards the stairs ~ 125 ft using FWW SBA. seated rest break in the w/c. c/o increase L knee pain. completed up/down 3 steps holding on to R rail with B hands SBA. assisted pt back to his room. pt requested to use the toilet. sit to stand from the w/c SBA and ambulated towards the toilet using fWW SBA. left pt with call light within reach. informred nurse that pt is using the toilet. Gait Assessment Gait Gait Assistance Required: Standby Assistance Distance (Feet) 125 Able to Maintain Weight Bearing Status Yes During Gait Assistive Devices Assistive Device Gait Belt,Front Wheeled Walker Orthotic/Prosthetic Devices or Brace: No Gait Deviations General Gait Pattern Antalgic,Decreased Stride Length,Decreased Feet Clearance Factors Limiting Gait Function Factors Limiting Gait Function Decreased Activity Tolerance, Decreased Strength,Limited Range of Motion,Pain,Poor Balance Stair Climbing Assessment Evaluation Level of Assist On Stairs Standby Assistance,1 Person Assistance Devices Stair Climbing Assistive Devices Right Railing Technique/Endurance Stair Climbing Direction Ascend and Descend Stair Climbing Technique Step to Step Number of Steps Climbed 3 Stair Climbing Set # Repetitions (reps) 1 M5 PT-IP Objective Assessments Start: 01/06/23 12:42 Freq: NEEDED Status: Active Protocol: Document 01/06/23 10:00 AB (Rec: 01/06/23 12:55 [facility] Orientation Orientation/Cognition Level of Alertness Alert Orientation Name,Place,Situation Language Function Ability No Deficits Noted Safety Awareness Decreased Safety Awareness Memory Description No Deficits Noted Gross Range of Motion Lower Extremity ROM Impairments L knee flexion: ~ 70 deg Strength Lower Extremity Strength Assessment Left Impaired Hip 4-/5 Knee 3+/5 Coordination Assessment Gross Coordination Gross Coordination WNL Sensation Assessment Sensation Gross Sensation WNL Muscle Tone Muscle Tone WNL Yes M6 PT-IP Treatment Start: 01/06/23 12:42 Freq: NEEDED Status: Active Protocol: Document 01/06/23 12:56 AB (Rec: 01/06/23 13:24 [facility] Physical Therapy Treatment Education Education Provided Safety M7 PT-IP Assessment and Plan Start: 01/06/23 12:42 Freq: NEEDED Status: Active Protocol: Document 01/06/23 12:56 AB (Rec: 01/06/23 13:24 [facility] PT Summary Assessment and Plan Potential Rehabilitation Potential Good Summary Impairments Pain,ROM,Strength,Balance, Coordination,Bed Mobility, Transfers,Gait,Activity Tolerance Progress Towards Goals Progressing Toward Goals Assessment Summary pt is progress with mobility and requiring SBA with ambulation using FWW. able to complete stairs SBA. pt plans to go home today. Goals Bed Mobility Goal Independent Transfer Goal Independent,Front Wheeled Walker Gait Goal Independent,Front Wheel Walker Gait Distance 300 Other Goals up/down 4 steps R rail ascending SBA Days to Meet Goals 5 Frequency of Treatment Frequency Of Treatment Twice a Day Treatment Plan Physical Therapy Treatment Plan Bed Mobility Training,Transfer Training,Gait Training, Therapeutic Exercise,Balance Retraining,Post Op Education, Discharge Planning,Hot or Cold Pack,Neuromuscular Re-ed, Coordination Retraining,Manual Therapy Weight Bearing Status Weight Bearing Status Weight Bear as Tolerated Allowed Weight Bearing Amount (enter % LLE WBAT or #) (%) Recommendations To Nursing Amount of Assist Needed 1 Person Assist Discharge Recommendations PT Discharge Recommendations Home with Assistance, Outpatient PT Transportation Needs at Discharge Private Vehicle
== END 2023-01-06 14:25 | disposition home or self-care (01) ==
LOC: OR 09:59 → AC 09:59
PROVIDERS: Hospitalist; Referring Provider Orthopaedic Surgery Adult Reconstructive Orthopaedic Surgery; Visit Provider Orthopaedic Surgery Adult Reconstructive Orthopaedic Surgery
PROC: 0SRD0JZ Replacement of Left Knee Joint with Synthetic Substitute, Open Approach (ICD-10-PCS; CPT 27447; principal; 2023-01-05 11:30)
DX: M17.12 Unilateral primary osteoarthritis, left knee (principal); R07.89 Other chest pain; I10 Essential (primary) hypertension; Z86.718 Personal history of other venous thrombosis and embolism; M25.762 Osteophyte, left knee
CPT/HCPCS: 27447; 36415; 71045; 73560; 84484; 85014; 85018; 93005; 93010; 94762; 97116; 97161; 97530; C1776; J0690; J1885; J2270; J2704